=== PATIENT | female | born 1980 | race African-American/Black ===

== ENCOUNTER 2016-12-21 17:54 | Emergency (ER) | payer OTHER ==
--- NOTE | ~2016-12-21 | CR126 ---
[facility] A Service of [facility] & [facility] RADIOLOGY TEXT RESULTS PATIENT: JELLY WINSTON LOCATION: [facility] : 82 UNIT #: [id number] AGE: [address]: Kaylyn Valderrama SEX: F ORDER DR: [id number] [facility] [address] [place], [place] [address] [id number] E MR#: [id number] Acc #: [id number] NAME: JELLY WINSTON. : 1980 SEX: F STUDY DATE/TIME: 12/21/2016 18:27 UNIT: [facility] ROOM: STUDY DESCRIPTION: CR Foot Complete Min 3 View Lt Attending Physician: Kaylyn Valderrama P.A.-C. Ordering Physician: Kaylyn Valderrama P.A.-C. Primary Care Physician: [facility] MEDICAL IMAGING REPORT This report is preliminary unless electronic signature is present EXAM Left foot series, 12/21/2016. HISTORY Trauma. Pain mostly in foot radiates proximally. While wrestling. Person fell on leg. Happened today. FINDINGS AP, lateral and oblique radiographs of the left foot show normal bony mineralization. No traumatic fracture or malalignment. The joint spaces are intact. There is no soft tissue defect, subcutaneous air or radiodense foreign body. Dictated by... Elliott Espino M.D. THIS IS AN ELECTRONICALLY VERIFIED REPORT Elliott Espino M.D. at 12/22/2016 10:26 PM Maggie TD: 12/22/2016 00:14 JOB #: [id number] MEDICAL IMAGING REPORT Page 1 of 1 COPY
--- NOTE | ~2016-12-21 | CR20 ---
[facility] A Service of [facility] RADIOLOGY TEXT RESULTS PATIENT: JELLY WINSTON LOCATION: [facility] : 82 UNIT #: [id number] AGE: [address]: Kaylyn Valderrama SEX: F ORDER DR: [id number] [facility] [address] [place], [place] [address] [id number] E MR#: [id number] Acc #: [id number] NAME: JELLY WINSTON. : 1980 SEX: F STUDY DATE/TIME: 12/21/2016 18:29 UNIT: [facility] ROOM: STUDY DESCRIPTION: CR Ankle Min 3 Views Lt Attending Physician: Kaylyn Valderrama P.A.-C. Ordering Physician: Kaylyn Valderrama P.A.-C. Primary Care Physician: [facility] MEDICAL IMAGING REPORT This report is preliminary unless electronic signature is present EXAM Left ankle series 12/21/2016 HISTORY Trauma. Pain mostly in foot radiates proximally. While resting, person fell on leg. FINDINGS AP lateral oblique radiographs of the left ankle are presented. Normal bony mineralization. The ankle mortise joint is normally located. There are small well-corticated calcific densities along the posterolateral aspect of the calcaneocuboid joint favored to represent chronic soft tissue calcifications. Correlate with mechanism of injury and location of patient pain. The possibility of small chip or avulsion fractures might be considered in the appropriate clinical context, but no fracture donor sites are seen. The largest of these calcifications measures about 2 mm in maximum diameter. There is no soft tissue defect, subcutaneous air radiodense foreign body. No indication of ankle joint effusion. Dictated by... Elliott Espino M.D. THIS IS AN ELECTRONICALLY VERIFIED REPORT Elliott Espino M.D. at 12/22/2016 10:26 PM Shawna TD: 12/22/2016 00:10 JOB #: [id number] [facility] A Service of [facility] RADIOLOGY TEXT RESULTS PATIENT: JELLY WINSTON LOCATION: [facility] : 82 UNIT #: [id number] AGE: [address]: Kaylyn Valderrama SEX: F ORDER DR: MEDICAL IMAGING REPORT Page 1 of 1 COPY
--- NOTE | ~2016-12-21 | CR252 ---
[facility] A Service of [facility] RADIOLOGY TEXT RESULTS PATIENT: JELLY WINSTON LOCATION: [facility] : 82 UNIT #: [id number] AGE: [address]: Kaylyn Valderrama SEX: F ORDER DR: [id number] [facility] [address] [place], [place] [address] [id number] E MR#: [id number] Acc #: [id number] NAME: JELLY WINSTON. : 1980 SEX: F STUDY DATE/TIME: 12/21/2016 18:32 UNIT: [facility] ROOM: STUDY DESCRIPTION: CR Tibia and Fibula 2 Views Lt Attending Physician: Kaylyn Valderrama P.A.-C. Ordering Physician: Kaylyn Valderrama P.A.-C. Primary Care Physician: [facility] MEDICAL IMAGING REPORT This report is preliminary unless electronic signature is present EXAM Tibia-fibula series, 12/21/2016 HISTORY Trauma. While wrestling person fell on leg, pain mostly in foot, radiates proximally. FINDINGS AP and lateral radiographs of the left tibia and fibula are presented. No traumatic malalignment. Knee and ankle joints appear intact. There is no indication of joint effusion. There are small calcifications along the inferior aspect of the calcaneocuboid joint, the largest measuring perhaps 2 mm in maximum diameter. These are favored to represent chronic soft tissue calcifications. In the appropriate clinical context, small chip or avulsion fractures might be considered. Correlate with mechanism of injury and location of patient's pain. There is no soft tissue defect, subcutaneous air or radiodense foreign body. Dictated by... Elliott Espino M.D. THIS IS AN ELECTRONICALLY VERIFIED REPORT Elliott Espino M.D. at 12/22/2016 10:26 PM Madelyn TD: 12/22/2016 00:15 JOB #: [id number] MEDICAL IMAGING REPORT [facility] A Service of [facility] RADIOLOGY TEXT RESULTS PATIENT: JELLY WINSTON LOCATION: [facility] : 82 UNIT #: [id number] AGE: [address]: Kaylyn Valderrama SEX: F ORDER DR: Page 1 of 1 COPY
== END 2016-12-21 19:40 | disposition home or self-care (01) ==
LOC: CED 17:54 → CFTX 17:54
DX: S82.892A Other fracture of left lower leg, initial encounter for closed fracture (principal); S93.602A Unspecified sprain of left foot, initial encounter; I10 Essential (primary) hypertension; F17.210 Nicotine dependence, cigarettes, uncomplicated; W03.XXXA Other fall on same level due to collision with another person, initial encounter; Y93.72 Activity, wrestling; Y92.009 Unspecified place in unspecified non-institutional (private) residence as the place of occurrence of the external cause
CPT/HCPCS: 29515; 73590; 73610; 73630; 99284